=== PATIENT | male | born 1985 | race Hispanic/Latino ===

== ENCOUNTER 2018-02-14 11:08 | Emergency (ER) | payer MEDICAID, SELFPAY ==
[2018-02-14 11:19] VITALS: TEMP 97.7; BMI 30.3
--- NOTE | 2018-02-14 11:43 | ED PDOC ---
Arrival/HPI - General Historian: Patient - History of Present Illness Narrative History of Present Illness (Text): 02/14/18 11:40 32yr old male presents today with a 1 day history of right sided dental pain and facial swelling. pt states he called a dentist to schedule appointment, but they dont have any appointments for 5 days. Pt denies trismus or drooling. pt denies fever/chills. pt denies headaches, dizziness or weakness. pt denies n/v/d/c. pt states he took tylenol and an oxycodone that he got from his aunt last night at 1am when the pain worsened. <Jeanna Ruth - Last Filed: 02/14/18 14:46> <Avinash Pearson - Last Filed: 02/15/18 16:04> - General Chief Complaint: Dental Pain Time Seen by Provider: 02/14/18 11:30 Past Medical History - Provider Review Nursing Documentation Reviewed: Yes - Travel History Have you recently traveled outside [place] w/in the past 3 mons?: No - Infectious Disease Hx of Infectious Diseases: None - Tetanus Immunization Tetanus Immunization: Up to Date - Cardiac Hx Cardiac Disorders: No - Pulmonary Hx Asthma: Yes - Neurological Hx Neurological Disorder: No - HEENT Hx HEENT Disorder: No - Renal Hx Renal Disorder: No - Endocrine/Metabolic Hx Endocrine Disorders: No - Hematological/Oncological Hx Blood Disorders: No - Integumentary Hx Dermatological Disorder: No - Musculoskeletal/Rheumatological Hx Musculoskeletal Disorders: No Hx Falls: No - Gastrointestinal Hx Pancreatitis: Yes - Genitourinary/Gynecological Hx Genitourinary Disorders: No - Psychiatric Hx Anxiety: Yes Hx Substance Use: No - Past Surgical History Past Surgical History: No Previous - Anesthesia Hx Anesthesia: No - Suicidal Assessment Feels Threatened In Home Enviroment: No <Jeanna Ruth - Last Filed: 02/14/18 14:46> Family/Social History - Physician Review Nursing Documentation Reviewed: Yes Family/Social History: Unknown Family HX Smoking Status: Never Smoked Hx Alcohol Use: Yes Frequency of alcohol use: Socially Hx Substance Use: No <Jeanna Ruth - Last Filed: 02/14/18 14:46> Allergies/Home Meds <Jeanna Ruth - Last Filed: 02/14/18 14:46> <Avinash Pearson - Last Filed: 02/15/18 16:04> Allergies/Adverse Reactions: Allergies No Known Allergies Allergy (Verified 01/29/13 21:17) Review of Systems - Review of Systems Constitutional: absent: Fatigue, Fevers Eyes: absent: Vision Changes ENT: Other (right lower dental pain). absent: Sore Throat, Sinus Congestion Respiratory: absent: SOB, Cough Cardiovascular: absent: Chest Pain, Palpitations Gastrointestinal: absent: Abdominal Pain, Nausea, Vomiting Skin: absent: Rash, Pruritis Neurological: absent: Headache, Dizziness Psychiatric: absent: Anxiety, Depression <Jeanna Ruth T - Last Filed: 02/14/18 14:46> Physical Exam Vital Signs Reviewed: Yes Vital Signs Temp Pulse Resp BP Pulse Ox 02/14/18 11:18 97.7 F 77 17 154/77 H 98 Temperature: Afebrile Blood Pressure: Hypertensive Pulse: Regular Respiratory Rate: Normal Appearance: Positive for: Well-Appearing, Non-Toxic, Comfortable Pain Distress: None Mental Status: Positive for: Alert and Oriented X 3 - Systems Exam Head: Present: Atraumatic, Swelling (+ swelling noted to right cheek) Ears: Present: Normal, NORMAL TM Mouth: Present: Moist Mucous Membranes, Normal Lips, Normal Tounge, Other (no swelling of the floor of the mouth. ). No: Drooling, Trismus, Normal Teeth (multiple dental fractures noted to right lower molars. + ttp over right lower molar. + edema noted to right lower gingiva. ) Pharnyx: Present: Normal. No: ERYTHEMA, EXUDATE, TONSILS ENLARGED Nose (External): Present: Atraumatic Nose (Internal): Present: Normal Inspection Neck: Present: Normal Range of Motion, Trachea Midline. No: Lymphadenopathy Respiratory/Chest: Present: Clear to Auscultation, Good Air Exchange. No: Respiratory Distress, Accessory Muscle Use Cardiovascular: Present: Regular Rate and Rhythm, Normal S1, S2. No: Murmurs Neurological: Present: GCS=15, Speech Normal Skin: Present: Warm, Dry, Normal Color. No: Rashes Psychiatric: Present: Alert, Oriented x 3 <Jeanna Ruth T - Last Filed: 02/14/18 14:46> Vital Signs Temp Pulse Resp BP Pulse Ox 02/14/18 12:40 82 18 142/71 99 02/14/18 11:18 97.7 F 77 17 154/77 H 98 <Avinash Pearson - Last Filed: 02/15/18 16:04> Medical Decision Making ED Course and Treatment: 02/14/18 11:48 Patient is nontoxic well-appearing in no distress with stable vital signs No trismus or drooling, moist mucous membranes clindamycin Toradol Patient reassessment: Patient is feeling better after medications. I advised follow-up with the dentist within the next 2 days. I advised immediate return is symptoms worsen persist or if new concerning symptoms develop Patient verbalizes understanding of discharge instructions and need for immediate followup. Impression: Toothache, dental abscess Motrin every 6 hours as needed for pain Tramadol; 1 tablet every 6 hours as needed for moderate to severe pain; may cause drowsiness. Clindamycin 1 tablet 3 times daily x 7 days Follow-up with the dentist within the next 2 days Follow up with the primary care physician within the next 2 days. Return immediately if symptoms worsen persist or if new concerning symptoms develop <Jeanna Ruth - Last Filed: 02/14/18 14:46> - Medication Orders Current Medication Orders: Discontinued Medications Clindamycin HCl (Cleocin) 300 mg PO STAT STA; Protocol Stop: 02/14/18 11:41 Last Admin: 02/14/18 12:01 Dose: 300 mg Ketorolac Tromethamine (Toradol) 60 mg IM STAT STA Stop: 02/14/18 11:41 Last Admin: 02/14/18 12:03 Dose: 60 mg MAR Pain Assessment Document 02/14/18 12:03 HI (Rec: 02/14/18 12:04 NE [id number]) Pain Reassessment Is this a pain reassessment? No Sleep Is patient sleeping during reassessment? No Presence of Pain Presence of Pain Yes Location Left, Right or Bilateral Right Pain Location Body Site Jaw Description Intensity of Pain at present 3 IM Administration Charges Document 02/14/18 12:03 HI (Rec: 02/14/18 12:04 NE [id number]) Injection Site MAR Injection Site Right Deltoid Charges for Administration # of IM Administrations 1 <Avinash Pearson - Last Filed: 02/15/18 16:04> - PA / SPOT REMOVER / Resident Statement MD/DO has reviewed & agrees with the documentation as recorded. <Avinash Pearson - Last Filed: 02/15/18 16:04> Disposition/Present on Arrival - Present on Arrival Any Indicators Present on Arrival: No History of DVT/PE: No History of Uncontrolled Diabetes: No Urinary Catheter: No History of Decub. Ulcer: No History Surgical Site Infection Following: None - Disposition Have Diagnosis and Disposition been Completed?: Yes Disposition Time: 11:58 Patient Plan: Discharge <AntoninocarinaJeanna Ava - Last Filed: 02/14/18 14:46> <Avinash Pearson - Last Filed: 02/15/18 16:04> - Disposition Diagnosis: Dental abscess Disposition: HOME/ ROUTINE Condition: GOOD Discharge Instructions (ExitCare): Tooth Abscess (DC), Dental Pain (DC) Additional Instructions: Motrin every 6 hours as needed for pain Tramadol; 1 tablet every 6 hours as needed for moderate to severe pain; may cause drowsiness. Clindamycin 1 tablet 3 times daily x 7 days Follow-up with the dentist within the next 2 days Follow up with the primary care physician within the next 2 days. Return immediately if symptoms worsen persist or if new concerning symptoms develop Prescriptions: RX: Clindamycin [Cleocin] 300 mg PO TID #21 cap Ibuprofen [Motrin] 600 mg PO Q6H PRN #20 tab PRN Reason: pain/fever reduction RX: traMADol [Ultram] 50 mg PO Q6H PRN #6 tab PRN Reason: moderate to severe pain Referrals: [facility] [Outside] - Follow up with primary Dax Almonte DMD [Staff Provider] - Follow up with primary Ronen Hayes DMD [Non-Staff] - Follow up with primary Forms: [employer] (Wallisian)
[2018-02-14 12:44] VITALS: BP 142/71; PULSE 82; RESP 18; O2SAT 99
== END 2018-02-14 12:44 | disposition home or self-care (01) ==
LOC: ED 11:08
DX: K04.7 Periapical abscess without sinus (principal)
CPT/HCPCS: 96372; 99283; J1885